=== PATIENT | female | born 1990 | race African-American/Black ===

== ENCOUNTER 2019-03-04 19:16 | Emergency (ER) | payer MEDICAID ==
[~2019-03-04] VITALS: Ht 162.6 cm; Wt 61.2 kg
[2019-03-04 19:44] VITALS: BP_SYST 105
[2019-03-04] MEDS ORDERED: IBUPROFEN 800 MG TABLET PO ONE (21:45)
[2019-03-04] MEDS ORDERED: BACITRACIN 1 GM OINT TP ONE ×2 (23:30→23:35)
[2019-03-04 23:58] VITALS: BP_SYST 112
== END 2019-03-04 23:53 | disposition home or self-care (01) ==
LOC: SED 19:16
DX: S96.912A Strain of unspecified muscle and tendon at ankle and foot level, left foot, initial encounter (principal); S96.911A Strain of unspecified muscle and tendon at ankle and foot level, right foot, initial encounter; S86.911A Strain of unspecified muscle(s) and tendon(s) at lower leg level, right leg, initial encounter; S40.011A Contusion of right shoulder, initial encounter; S90.821A Blister (nonthermal), right foot, initial encounter; Z88.0 Allergy status to penicillin; Z90.49 Acquired absence of other specified parts of digestive tract; Y04.0XXA Assault by unarmed brawl or fight, initial encounter; Y93.89 Activity, other specified; Y92.89 Other specified places as the place of occurrence of the external cause; Y99.8 Other external cause status
CPT/HCPCS: 73030; 73564; 99283